=== PATIENT | male | born 1980 | race Hispanic/Latino ===

== ENCOUNTER 2022-01-12 20:34 | Emergency (ER) | payer BC, OTHER ==
[~2022-01-12] VITALS: Ht 170.2 cm; Wt 117.9 kg
[2022-01-12] MEDS ORDERED: DIAZEPAM 5 MG/ML 2 ML SYG IVP ONE (21:00)
[2022-01-12] MEDS ORDERED: KETOROLAC 30MG VIAL (30MG/ML) IVP ONE (21:00)
[2022-01-12] MEDS ORDERED: CYCL10TA16 PO (22:46)
[2022-01-12] MEDS ORDERED: NAPR-1180 PO (22:46)
[2022-01-12 23:23] VITALS: BP 122/64
== END 2022-01-12 23:25 | disposition home or self-care (01) ==
LOC: EDH 20:34
DX: M47.816 Spondylosis without myelopathy or radiculopathy, lumbar region (principal); M54.50 Low back pain, unspecified; E66.9 Obesity, unspecified; Z68.41 Body mass index [BMI] 40.0-44.9, adult
CPT/HCPCS: 72131; 96374; 96375; 99284; J1885; J3360

== ENCOUNTER 2022-03-23 09:27 | Emergency (ER) | payer BC ==
[~2022-03-23] VITALS: Ht 167.6 cm; Wt 106.6 kg
[~2022-03-23 09:27] MED LIST: CYCL10TA16 PO; NAPR-1180 PO
[2022-03-23 09:31] VITALS: BP 122/82
[2022-03-23 10:09] LABS: BASOPHILS % (AUTO) 0.3 % (0.0-5.0); EOSINOPHILS % (AUTO) 2.6 % (0.0-8.0); HEMATOCRIT 47.1 % (42-54); LYMPHOCYTES % (AUTO) 22.5 % (21.0-51.0); MEAN CORPUSCULAR HEMOGLOBIN 28.9 pg (27.0-33.0); MEAN CORPUSCULAR HGB CONC 34.6 g/dL (32.0-36.0); MEAN CORPUSCULAR VOLUME 83.5 fL (79-99); MONOCYTES % (AUTO) 6.7 % (3.0-13.0); NEUTROPHILS % (AUTO) 67.7 % (40.0-77.0); PLATELET COUNT (AUTO) 249 K/uL (130-400); RED BLOOD CELL COUNT(AUTO) 5.64 MIL/uL (4.50-6.20); RED CELL DISTRIBUTION WIDTH 13.6 % (11.0-15.5); WHITE BLOOD COUNT (AUTO) 9.3 K/uL (4.8-10.8)
[2022-03-23 10:25] LABS: CREATININE 0.8 mg/dL (0.5-1.5); POTASSIUM 3.9 mmol/L (3.5-5.1)
[2022-03-23] MEDS ORDERED: HYDR25SU38 RC (10:28)
[2022-03-23 10:30] LABS: ALBUMIN 3.6 g/dL (3.5-5.0); TOTAL PROTEIN, SERUM 8.2 g/dL (6.0-8.3)
[2022-03-23] MEDS ORDERED: LIDOCAINE/PRILOCAINE CREAM 5GM TUBE TP SCH (10:30)
[2022-03-23] MEDS ORDERED: HYDROCORTISONE 25 MG SUPPOSITORY PR SCH (10:30)
== END 2022-03-23 10:47 | disposition home or self-care (01) ==
LOC: EDH 09:27
DX: K64.9 Unspecified hemorrhoids (principal); Z79.1 Long term (current) use of non-steroidal anti-inflammatories (NSAID)
CPT/HCPCS: 99283; 80053; 85025; 36415; J3490